=== PATIENT | female | born 1975 | race Caucasian/White ===

== ENCOUNTER 2021-04-03 21:15 | Emergency (ER) | payer MEDICAID, OTHER ==
[2021-04-03] MEDS ORDERED: Zofran 4 MG/2 ML VIAL ONE (21:42)
[2021-04-03] MEDS ORDERED: MORPHINE SULFATE 4 MG INJ ONE (21:45)
[2021-04-03] MEDS ORDERED: Sodium Chloride 0.9% 1000 ML 1,000 ML IV STA (21:47)
[2021-04-03] MEDS ORDERED: MORPHINE SULFATE 4 MG INJ IM ONE (22:30)
[2021-04-03] MEDS ORDERED: Zofran 4 MG/2 ML VIAL IM ONE (22:31)
[2021-04-03 23:12] LABS: Appearance CLOUDY (CLEAR); Bacteria MODERATE /HPF (NEGATIVE); Bilirubin NEGATIVE (NEGATIVE); Blood NEGATIVE Ery/ul (0-5); Epithelial Cells MODERATE /HPF (FEW); Glucose NEGATIVE (NEGATIVE); Ketones MODERATE (NEGATIVE); Leukocyte Esterase SMALL (NEGATIVE); Mucus MANY /HPF (NEGATIVE); Nitrite NEGATIVE (NEGATIVE); Protein,Urine Dip 100 (Negative); Specific Gravity 1.031 (1.005-1.025); Urobilinogen 2 mg/dL (0-1)
[2021-04-03 23:22] LABS: Amphetamine,Urine NEGATIVE (NEGATIVE); Barbiturate,Urine NEGATIVE (NEGATIVE); Benzodiazepine,Urine NEGATIVE (NEGATIVE); Cocaine,Urine NEGATIVE (NEGATIVE); Methadone,Urine NEGATIVE (NEGATIVE); Opiate,Urine NEGATIVE (NEGATIVE); PCP,Urine NEGATIVE (NEGATIVE); THC,Urine NEGATIVE (NEGATIVE)
[2021-04-03] MEDS ORDERED: Sodium Chloride 0.9% 1000 ML 1,000 ML ONE (23:54)
[2021-04-04 01:27] LABS: Absolute Neutrophil Ct (ANC) 13.06 (1.4-6.9); BASOPHIL % 0.1 % (0.0-0.4); Basophil (Absolute #) 0.02 (0-0.4); Eosinophil (Absolute #) 0 (0-0.5); Hematocrit 42.5 % (35-47); Hemoglobin 14.2 gm/dl (12.0-16.0); Lymphocyte (Absolute #) 1.43 (1.0-4.6); Lymphocytes % 9.3 % (24.0-44.0); Mean Corpuscular Hemoglobin 30.1 pg (26-32); Mean Corpuscular Hgb Concent. 33.4 g/dl (32-36); Mean Platelet Volume 10.3 fl (7.5-11.0); Monocyte (Absolute #) 0.89 (0.0-1.3); Monocytes % 5.8 % (0.0-12.0); Neutrophil % 84.8 % (36.0-66.0); Platelet Count 300 K/mm3 (150-450); Red Blood Count 4.72 M/mm3 (4.1-5.4); Red Cell Distribution Width 13.6 % (11.5-14.0); White Blood Count 15.4 K/mm3 (4.0-10.5)
[2021-04-04 01:45] LABS: ALKALINE PHOSPHATASE 71 U/L (38-126); ANION GAP 18.6 MEQ/L (5-15); BLOOD UREA NITROGEN 11 mg/dL (7-17); CHLORIDE 100 mmol/L (98-107); Calcium 9.5 mg/dL (8.4-10.2); Carbon Dioxide 21 mmol/L (22-30); Creatinine 1 0.57 mg/dL (0.52-1.04); EST GLOMERULAR FILTRATION RATE > 60.0 ML/MIN; Glucose 130 mg/dL (74-106); LIPASE 17 U/L (23-300); Potassium 3.6 mmol/L (3.5-5.1); SGOT/AST 33 U/L (14-36); SGPT/ALT 34 U/L (0-35); SODIUM 136 mmol/L (137-145); Total Protein 8.6 g/dL (6.3-8.2)
[2021-04-04] MEDS ORDERED: KEFLEX 500 MG PO ONE (01:59)
--- NOTE | 2021-04-04 02:01 | ERPHSYRPT ---
- History of Present Illness Time Seen by Provider: 04/03/21 21:17 Historian: patient, EMS Exam Limitations: no limitations Patient Subjective Stated Complaint: Patient states " I have been having ABD pain since yesterday." Triage Nursing Assessment: Patient arrived via EMS. Patient yelling out and making nonsencical sentences. Patient is aware of where she is and knows . Patient yelling out it "it hurts so bad" Physician History: 45 years old female with history of substance abuse who was arrested last night and released this evening is brought in the ER by EMS with worsening abdominal pain since last night generalized, moderate to severe intensity sharp pain with associated multiple episodes of nonprojectile, nonbilious vomiting and no hematemesis. Patient denies any fever or chills. No chest pain palpitations or shortness of breath. Denies using any drugs but does have history of substance abuse. Timing/Duration: yesterday, constant, gradual onset, worse Activities at Onset: rest Quality: cramping, sharpness Abdominal Pain Onset Location: generalized abdomen Pain Radiation: no radiation Severity of Pain-Max: severe Severity of Pain-Current: severe Modifying Factors: Worsens With: vomiting Associated Symptoms: nausea, vomiting Previous symptoms: same symptoms as today Allergies/Adverse Reactions: Sulfa (Sulfonamide Antibiotics) Allergy (Intermediate, Verified 04/03/21 21:24) Hives Hx Tetanus, Diphtheria Vaccination/Date Given: No Hx Influenza Vaccination/Date Given: No Hx Pneumococcal Vaccination/Date Given: No Immunizations Up to Date: Yes Travel Risk - International Travel Have you traveled outside of the country in past 3 weeks: No If Yes, where;: N - Coronavirus Screening Are you exhibiting any of the following symptoms?: No Close contact with a COVID-19 positive Pt in past 14-21 Days: No - Vaccine Status Have you recieved a Covid-19 vaccination: No - Review of Systems Constitutional: No Symptoms Eyes: No Symptoms Ears, Nose, & Throat: No Symptoms Respiratory: No Symptoms Cardiac: No Symptoms Abdominal/Gastrointestinal: Abdominal Pain, Nausea, Vomiting Genitourinary Symptoms: No Symptoms Musculoskeletal: No Symptoms Skin: No Symptoms Neurological: No Symptoms Psychological: Drug Abuse, Anxiety, Depression, No Suicidal Ideations, No Homicidal Ideations Endocrine: No Symptoms Hematologic/Lymphatic: No Symptoms Immunological/Allergic: No Symptoms - Past Medical History Pertinent Past Medical History: No Neurological History: No Pertinent History ENT History: No Pertinent History Cardiac History: No Pertinent History Respiratory History: No Pertinent History Endocrine Medical History: No Pertinent History Musculoskeletal History: Arthritis GI Medical History: No Pertinent History History: No Pertinent History Psycho-Social History: Anxiety, Depression Female Reproductive Disorders: No Pertinent History - Past Surgical History Past Surgical History: Yes Neuro Surgical History: No Pertinent History Cardiac: No Pertinent History Respiratory: No Pertinent History Gastrointestinal: Cholecystectomy Genitourinary: No Pertinent History Musculoskeletal: Orthopedic Surgery Female Surgical History: Section Other Surgical History: Right Ankle Surgery - Social History Smoking Status: Current some day smoker How long have you smoked: 20 years Exposure to second hand smoke: Yes Drug Use: none Patient Lives Alone: No - Female History Hx Last Menstrual Period: Mirana Hx Now: (unkn) - Nursing Vital Signs Nursing Vital Signs: Initial Vital Signs Temperature 97.8 F 04/03/21 21:19 Pulse Rate 50 L 04/03/21 21:19 Respiratory Rate 22 04/03/21 21:19 Blood Pressure 194/100 04/03/21 21:19 O2 Sat by Pulse Oximetry 99 04/03/21 21:19 Pain Scale Pain Intensity 10 - Physical Exam General Appearance: no apparent distress, alert Eye Exam: PERRL/EOMI, eyes nml inspection Ears, Nose, Throat Exam: normal ENT inspection, pharyngeal erythema Neck Exam: normal inspection, non-tender, supple, full range of motion Respiratory Exam: normal breath sounds, lungs clear Cardiovascular Exam: regular rate/rhythm, normal heart sounds Gastrointestinal/Abdomen Exam: soft, normal bowel sounds, tenderness (Generalized without guarding or rebound) Back Exam: normal inspection, normal range of motion Extremity Exam: normal inspection, normal range of motion, pelvis stable Neurologic Exam: alert, oriented x 3, cooperative, business instructor II-XII nml as tested, nml station & gait, sensation nml, No nml cerebellar function, No motor deficits Skin Exam: normal color SpO2 Interpretation: normal SpO2: 98 O2 Delivery: Room Air Ordered Tests: Active Orders 24 hr Category Date Time Status IV Insertion STAT Care 04/03/21 21:47 Active NPO (ED) STAT Care 04/03/21 21:47 Active ABDOMEN AND PELVIS W/0 CONTRAS [CT] Stat Exams 04/03/21 21:48 Taken CBC W DIFF Stat Lab 04/03/21 01:20 Completed CMP Stat Lab 04/03/21 01:20 Completed CULTURE,URINE Stat Lab 04/03/21 21:53 Received HCG,QUALITATIVE URINE Stat Lab 04/03/21 21:53 Completed LIPASE Stat Lab 04/03/21 01:20 Completed POCT GLUCOSE Stat Lab 04/04/21 00:38 Completed UA W/RFX UR CULTURE Stat Lab 04/03/21 21:53 Completed Urine Triage Profile Stat Lab 04/03/21 21:53 Completed Medication Summary Discontinued Medications Generic Name Dose Route Start Last Admin Trade Name Dereje PRN Reason Stop Dose Admin Sodium Chloride 1,000 mls @ 999 mls/hr 04/03/21 21:47 04/03/21 23:56 Sodium Chloride 0.9% 1000 Ml IV 04/03/21 22:47 999 mls/hr .Q1H1M STA Administration Sodium Chloride Confirm 04/03/21 23:54 Sodium Chloride 0.9% 1000 Ml Administered 04/03/21 23:55 Dose 1,000 mls @ ud .ROUTE .STK-MED ONE Morphine Sulfate Confirm 04/03/21 21:45 Morphine Sulfate 4 Mg Inj Administered 04/03/21 21:46 Dose 4 mg .ROUTE .STK-MED ONE Morphine Sulfate 4 mg 04/03/21 22:30 04/03/21 22:32 Morphine Sulfate 4 Mg Inj IM 04/03/21 22:31 4 mg STAT ONE Administration Ondansetron HCl Confirm 04/03/21 21:42 Zofran 4 Mg/2 Ml Vial Administered 04/03/21 21:43 Dose 4 mg .ROUTE .STK-MED ONE Ondansetron HCl 4 mg 04/03/21 22:31 04/03/21 22:31 Zofran 4 Mg/2 Ml Vial IM 04/03/21 22:32 4 mg STAT ONE Administration Lab/Rad Data: Laboratory Result Diagrams 04/03/21 01:20 04/03/21 01:20 Laboratory Results 04/04/21 04/03/21 04/03/21 Range/Units 00:38 21:53 21:53 WBC (4.0-10.5) K/mm3 RBC (4.1-5.4) M/mm3 Hgb (12.0-16.0) gm/dl Hct (35-47) % MCV (78-100) fl MCH (26-32) pg MCHC (32-36) g/dl RDW (11.5-14.0) % Plt Count (150-450) K/mm3 MPV (7.5-11.0) fl Gran % (36.0-66.0) % Eos # (Auto) (0-0.5) Absolute Lymphs (auto) (1.0-4.6) Absolute Monos (auto) (0.0-1.3) Lymphocytes % (24.0-44.0) % Monocytes % (0.0-12.0) % Eosinophils % (0.00-5.0) % Basophils % (0.0-0.4) % Absolute Granulocytes (1.4-6.9) Basophils # (0-0.4) Sodium (137-145) mmol/L Potassium (3.5-5.1) mmol/L Chloride (98-107) mmol/L Carbon Dioxide (22-30) mmol/L Anion Gap (5-15) MEQ/L BUN (7-17) mg/dL Creatinine (0.52-1.04) mg/dL Estimated GFR ML/MIN Glucose (74-106) mg/dL POC Glucometer 136 H (74 to 106) mg/dL Calcium (8.4-10.2) mg/dL Total Bilirubin (0.2-1.3) mg/dL AST (14-36) U/L ALT (0-35) U/L Alkaline Phosphatase (38-126) U/L Serum Total Protein (6.3-8.2) g/dL Albumin (3.5-5.0) g/dL Lipase (23-300) U/L Urine Color (YELLOW) Urine Appearance (CLEAR) Urine pH (5-6) Ur Specific [place] (1.005-1.025) Urine Protein (Negative) Urine Ketones (NEGATIVE) Urine Blood (0-5) Vinh/ul Urine Nitrite (NEGATIVE) Urine Bilirubin (NEGATIVE) Urine Urobilinogen (0-1) mg/dL Ur Leukocyte Esterase (NEGATIVE) Urine WBC (Auto) (0-5) /HPF Urine RBC (Auto) (0-2) /HPF U Epithel Cells (Auto) (FEW) /HPF Urine Bacteria (Auto) (NEGATIVE) /HPF Urine Mucus (Auto) (NEGATIVE) /HPF Urine Culture Reflexed (NO) Urine Glucose (NEGATIVE) mg/dL Urine HCG, Qual NEGATIVE (Negative) Urine Opiates Level NEGATIVE (NEGATIVE) Ur Methadone NEGATIVE (NEGATIVE) Urine Barbiturates NEGATIVE (NEGATIVE) Ur Phencyclidine (PCP) NEGATIVE (NEGATIVE) Urine Amphetamine NEGATIVE (NEGATIVE) U Benzodiazepine Level NEGATIVE (NEGATIVE) Urine Cocaine NEGATIVE (NEGATIVE) Urine Marijuana (THC) NEGATIVE (NEGATIVE) 04/03/21 04/03/21 04/03/21 Range/Units 21:53 01:20 01:20 WBC 15.4 H (4.0-10.5) K/mm3 RBC 4.72 (4.1-5.4) M/mm3 Hgb 14.2 (12.0-16.0) gm/dl Hct 42.5 (35-47) % MCV 90.0 (78-100) fl MCH 30.1 (26-32) pg MCHC 33.4 (32-36) g/dl RDW 13.6 (11.5-14.0) % Plt Count 300 (150-450) K/mm3 MPV 10.3 (7.5-11.0) fl Gran % 84.8 H (36.0-66.0) % Eos # (Auto) 0 (0-0.5) Absolute Lymphs (auto) 1.43 (1.0-4.6) Absolute Monos (auto) 0.89 (0.0-1.3) Lymphocytes % 9.3 L (24.0-44.0) % Monocytes % 5.8 (0.0-12.0) % Eosinophils % 0.0 (0.00-5.0) % Basophils % 0.1 (0.0-0.4) % Absolute Granulocytes 13.06 H (1.4-6.9) Basophils # 0.02 (0-0.4) Sodium 136 L (137-145) mmol/L Potassium 3.6 (3.5-5.1) mmol/L Chloride 100 (98-107) mmol/L Carbon Dioxide 21 L (22-30) mmol/L Anion Gap 18.6 H (5-15) MEQ/L BUN 11 (7-17) mg/dL Creatinine 0.57 (0.52-1.04) mg/dL Estimated GFR > 60.0 ML/MIN Glucose 130 H (74-106) mg/dL POC Glucometer (74 to 106) mg/dL Calcium 9.5 (8.4-10.2) mg/dL Total Bilirubin 0.80 (0.2-1.3) mg/dL AST 33 (14-36) U/L ALT 34 (0-35) U/L Alkaline Phosphatase 71 (38-126) U/L Serum Total Protein 8.6 H (6.3-8.2) g/dL Albumin 5.0 (3.5-5.0) g/dL Lipase 17 L (23-300) U/L Urine Color EMY (YELLOW) Urine Appearance CLOUDY (CLEAR) Urine pH 6.0 (5-6) Ur Specific [place] 1.031 (1.005-1.025) Urine Protein 100 (Negative) Urine Ketones MODERATE (NEGATIVE) Urine Blood NEGATIVE (0-5) Vinh/ul Urine Nitrite NEGATIVE (NEGATIVE) Urine Bilirubin NEGATIVE (NEGATIVE) Urine Urobilinogen 2 (0-1) mg/dL Ur Leukocyte Esterase SMALL (NEGATIVE) Urine WBC (Auto) 6-10 (0-5) /HPF Urine RBC (Auto) 3-5 (0-2) /HPF U Epithel Cells (Auto) MODERATE (FEW) /HPF Urine Bacteria (Auto) MODERATE (NEGATIVE) /HPF Urine Mucus (Auto) MANY (NEGATIVE) /HPF Urine Culture Reflexed YES (NO) Urine Glucose NEGATIVE (NEGATIVE) mg/dL Urine HCG, Qual (Negative) Urine Opiates Level (NEGATIVE) Ur Methadone (NEGATIVE) Urine Barbiturates (NEGATIVE) Ur Phencyclidine (PCP) (NEGATIVE) Urine Amphetamine (NEGATIVE) U Benzodiazepine Level (NEGATIVE) Urine Cocaine (NEGATIVE) Urine Marijuana (THC) (NEGATIVE) - Progress Progress: improved, re-examined Progress Note: 04/04/21 02:01 She is given symptomatic treatment for pain and vomiting, on reevaluation feeling better. Patient was a hard stick and I have put a midline which patient pulled out and does not want to be stuck again. While in the ER patient was seen multiple times going to take shower which according to her helps her with the pain. She has a white count of 15, chemistry profile showed finding consistent with dehydration but she did not get enough fluid and does not want to be poked again. I have obtained CT abdomen pelvis without contrast which is negative for any acute findings. On reevaluation abdominal exam is soft nontender and patient is pain-free. I believe patient might have taken some synthetics and is having some withdrawals but I am not sure about it. Patient does have multiple track erwin on arms. She does have an element of UTI and started on Keflex. We would give her Zofran to go home. At this point I do not think she needs any further work-up in the ER and if he does not want to be stuck again there is no point of keeping her in here and is being discharged with instructions to drink plenty of fluids and return to ER for any worsening. She is not confused or altered at all. Counseled pt/family regarding: lab results, diagnosis, need for follow-up, rad results, smoking cessation - Departure Departure Disposition: Home Clinical Impression: Dehydration, Substance abuse Abdominal pain Qualifiers: Abdominal location: generalized Qualified Code(s): R10.84 - Generalized abdominal pain Nausea & vomiting Qualifiers: Vomiting type: unspecified Vomiting Intractability: non-intractable Qualified Code(s): R11.2 - Nausea with vomiting, unspecified UTI (urinary tract infection) Qualifiers: Urinary tract infection type: site unspecified Hematuria presence: without hematuria Qualified Code(s): N39.0 - Urinary tract infection, site not specified Condition: Stable Critical Care Time: No Referrals: FRANCIS DONOVAN [Primary Care Provider] - (1 to 2 days for reevaluation) Instructions: Acute Abdomen (Belly Pain), Adult (DC), Dehydration, Adult (DC) Additional Instructions: Drink plenty of fluids. Take Tylenol/ibuprofen as needed for pain. Take Zofran as needed for nausea and vomiting. Continue with antibiotics for UTI. Follow- up with primary care physician for reevaluation and recheck of electrolytes. Return to ER for worsening abdominal pain, vomiting/fever chills etc. Prescriptions: Ondansetron ODT 4 MG [Zofran Odt 4 mg] 4 mg PO Q6H PRN PRN #10 tab.rapdis PRN Reason: Vomiting Cephalexin Mh 500 mg [Keflex 500 mg] 500 mg PO TID #21 capsule
[2021-04-04] MEDS ORDERED: KEFLEX 500 MG ONE (02:03)
[2021-04-04 02:12] VITALS: BP 160/74; PULSE 64; O2SAT 100
--- NOTE | 2021-04-04 09:19 | XRAY ---
Indication: Abdomen pain, nausea, vomiting, diarrhea. Multiple contiguous axial images obtained through the abdomen and pelvis without contrast. Comparison: None Lung bases clear. Heart is not enlarged. Noncontrasted stomach and bowel loops appear nonobstructed. Normal appendix. No free fluid/air. Previous cholecystectomy. Uterus demonstrates IUD in situ. Remaining liver, pancreas, spleen, adrenal glands, kidneys, ureters, bladder, uterus, and aorta are unremarkable for noncontrast exam. Osseous structures intact. No ventral or inguinal hernias. Impression: CT abdomen/pelvis without contrast exam is negative. Comment: Preliminary interpretation made by [facility]. No critical discrepancy.
== END 2021-04-04 02:11 | disposition home or self-care (01) ==
LOC: ED 21:15
DX: E86.0 Dehydration (principal); R10.84 Generalized abdominal pain; R11.2 Nausea with vomiting, unspecified; F19.10 Other psychoactive substance abuse, uncomplicated; N39.0 Urinary tract infection, site not specified
CPT/HCPCS: 36415; 74176; 80053; 80307; 81001; 82947; 83690; 84703; 85025; 87086; 96372; 99284; J2270; J2405; A9270-GY